=== PATIENT | male | born 1955 | race Caucasian/White ===

== ENCOUNTER 2016-11-30 18:27 | Emergency (ER) | payer OTHER ==
[2016-11-30 19:49] VITALS: BP 134/78
--- NOTE | 2016-11-30 20:16 | UC ---
Eye Complaint HPI - HPI Summary HPI Summary: The patient comes in today for: 1. FB sensation in the left eye: Onset: 4 hours ago. Palliative/provocative: Blinking Quality: FB sensation. Region: Left eye. Severity: 5/10 Time: Constant. Associated symptoms: Previous eye problems: None. Vision: normal. * - History of Current Complaint Chief Complaint: UCEye Stated Complaint: FB IN LEFT EYE Time Seen by Provider: 11/30/16 20:06 Hx Obtained From: Patient - Allergies/Home Medications Allergies/Adverse Reactions: Allergies Allergy/AdvReac Type Severity Reaction Status Date / Time No Known Allergies Allergy Verified 11/30/16 19:49 Home Medications: Home Medications Rivaroxaban TAB(*) [Xarelto 10 mg (*)] 10 mg PO DAILY 11/30/16 [History Confirmed 11/30/16] PMH/Surg Hx/FS Hx/Imm Hx Previously Healthy: No Endocrine History Of: Reports: Dyslipidemia Denies: Diabetes, Thyroid Disease, Hyperthyroidism, Hypothyroidism Cardiovascular History Of: Reports: Cardiac Disorders - A-FIB, Hypertension, Atrial Fibrillation Denies: Pacemaker/ICD, Myocardial Infarction, Congestive Heart Failure, Deep Vein Thrombosis, Bleeding Disorders Respiratory History Of: Reports: COPD - He used inhalers for "a while." Denies: Asthma, Bronchitis, Pneumonia, Pulmonary Embolism GI/ History Of: Denies: Gastroesophageal Reflux, Ulcer, Gastrointestinal Bleed, Gall Bladder Disease, Kidney Stones, Diverticulitis, Renal Disease, Urosepsis Neurological History Of: Denies: TIA, CVA, Dementia, Seizures, Migraine Psychological History Of: Denies: Anxiety, Depression, Bipolar Disorder, Schizophrenia, Post Traumatic Stress Disorder Cancer History Of: Denies: Lung Cancer, Colorectal Cancer, Breast Cancer, Prostate Cancer, Cervical Cancer Other History Of: Anticoagulant Therapy - Xarelto for a-fib. Negative For: HIV, Hepatitis B - Surgical History Surgical History: None - Family History Known Family History: Positive: Other - cva Negative: Cardiac Disease, Hypertension - Social History Occupation: Retired Alcohol Use: Rare Substance Use Type: None Smoking Status (MU): Former Smoker Amount Used/How Often: 1ppd >30yrs Have You Smoked in the Last Year: No When Did the Patient Quit Smoking/Using Tobacco: 5yrs ago Review of Systems Constitutional: Negative Skin: Negative Eyes: Eye Redness ENT: Negative Respiratory: Negative Cardiovascular: Negative Gastrointestinal: Negative Genitourinary: Negative Motor: Negative All Other Systems Reviewed And Are Negative: Yes Physical Exam Triage Information Reviewed: Yes Appearance: Well-Appearing, No Pain Distress, Well-Nourished Vital Signs: Initial Vital Signs Temp 98 F 11/30/16 19:40 Pulse 86 11/30/16 19:40 Resp 16 11/30/16 19:40 BP 134/78 11/30/16 19:40 Pulse Ox 97 11/30/16 19:40 Vital Signs Reviewed: Yes Eyes: Positive: Conjunctiva Clear - On the right, Conjunctiva Inflamed - on the left., Discharge - Only tearing., Other: - There is fluorescein uptake at the 12 o'clock position. It was only a few mm in diameter. There was no foreign body seen under the left eye lid. ENT: Positive: Hearing grossly normal, Other: - both ear canals full of cerumen , but no canal erythema or edema.. Negative: Pharyngeal erythema, Nasal congestion, Nasal drainage Dental: Negative: Gross Decay/Caries @, Dental Fracture @ Neck: Positive: Supple, Nontender, No Lymphadenopathy. Negative: Nuchal Rigidity Respiratory: Positive: Lungs clear, No respiratory distress, No accessory muscle use. Negative: Crackles, Wheezing Cardiovascular: Positive: RRR, No Murmur Abdomen Description: Positive: Nontender, No Organomegaly, Soft. Negative: Distended, Guarding Musculoskeletal: Positive: Strength Intact, ROM Intact Neurological: Positive: Alert, Muscle Tone Normal Psychological: Positive: Age Appropriate Behavior, Consolable Skin: Negative: rashes, breakdown Eye Complaint Course/Dx - Course Course Of Treatment: P - Differential Dx/Diagnosis Differential Diagnosis/HQI/PQRI: Corneal Abrasion, Foreign Body Provider Diagnoses: corneal abrasion Discharge - Discharge Plan Condition: Stable Disposition: HOME Patient Education Materials: Corneal Abrasion (ED) Referrals: Ibrahima Holcomb MD [Primary Care Provider] - 1 Week (Please see your primary care provider in about one to two weeks to see how well you are doing. If you get worse, please be seen sooner.)
[2016-11-30] MEDS ORDERED: BSS OPTH.SOL* BTL OPHTHALMIC ONE (20:17)
[2016-11-30] MEDS ORDERED: Fluorescein Sodium TOPICAL* 1 MG TEST OPHTHALMIC ONE (20:17)
[2016-11-30] MEDS ORDERED: Tetracaine 0.5% OPTH.SOL 4 ML* 1 DROP BTL LEFT EYE ONE (20:17)
[2016-11-30] MEDS ORDERED: Erythromycin OPTH OINT* APPLIC OINT RIGHT EYE ONE (21:01)
== END 2016-11-30 21:16 | disposition home or self-care (01) ==
LOC: UCCORT 18:27
DX: S05.02XA Injury of conjunctiva and corneal abrasion without foreign body, left eye, initial encounter (principal); X58.XXXA Exposure to other specified factors, initial encounter; Y93.9 Activity, unspecified; Y92.9 Unspecified place or not applicable; E78.5 Hyperlipidemia, unspecified; I10 Essential (primary) hypertension; I48.91 Unspecified atrial fibrillation; Z79.01 Long term (current) use of anticoagulants; J44.9 Chronic obstructive pulmonary disease, unspecified; Z87.891 Personal history of nicotine dependence
CPT/HCPCS: 99211; A9270-GY; G0463

== ENCOUNTER 2024-06-30 05:37 | Observation (INO) ==
[~2024-06-30 05:37] MED LIST: Metoclopramide 5 MG/ML VIAL (10 mg) IV PRN; NS 0.45% 1000 ml BAG 1,000 ML IV SCH; Naloxone 0.4 mg VIAL 0.4 mg/ml 1 ml VIAL IV PRN; Ondansetron 4 mg VIAL 2 MG/ML 2 ml VIAL IV PRN
[2024-06-30] MEDS ORDERED: Tranexamic Acid 1 GM/100ML BAG 2,000 MG/200 ML BAG IV ONE (06:17)
[2024-06-30] MEDS ORDERED: ceFAZolin 2 GM PREMIX 2 GM/50 ML BAG ONE (06:17)
[2024-06-30] MEDS: Lactated Ringers 1000 ml BAG 1,000 ML IV SCH ×2 (06:26→13:29)
[2024-06-30 06:28] LABS: Rapid COVID-19 Molecular Undetected (Undetected)
[2024-06-30] MEDS: Scopolamine 1 mg/72hr PATCH TRANSDERM ONE (06:28)
[2024-06-30] MEDS: Buffered Lidocaine 1% SYRIN 1 ml INTRADERM ONE (06:28)
[2024-06-30] MEDS ORDERED: ROPIVACAINE 5 MG/ML 30 ML BTL (0.5%) ONE (07:00)
[2024-06-30] MEDS ORDERED: Rocuronium 50 mg VIAL 10 mg/ml 5 ml VIAL (50 mg) ONE ×2 (07:07→07:53)
[2024-06-30] MEDS ORDERED: Propofol 10 MG/ML 20 ML BTL ONE ×2 (07:07→09:35)
[2024-06-30] MEDS ORDERED: Lidocaine 2% PF 5 ML VIAL ONE (07:07)
[2024-06-30] MEDS ORDERED: fentaNYL 100 mcg/2 ml 50 MCG/ML VIAL ONE ×3 (07:08→11:23)
[2024-06-30] MEDS ORDERED: Midazolam 2 mg/2 ml VIAL 1 mg/ml 2 ml VIAL (2 mg) ONE (07:08)
[2024-06-30] MEDS ORDERED: Ondansetron 4 mg VIAL 2 MG/ML 2 ml VIAL ONE (07:39)
[2024-06-30] MEDS ORDERED: Dexamethasone IV 4 MG/ML VIAL 1 ml VIAL ONE (07:39)
[2024-06-30] MEDS ORDERED: HYDROmorphone 0.5 MG/0.5 ML SYRINGE ONE ×3 (08:00→08:44)
[2024-06-30] MEDS ORDERED: Calcium Carb (TUMS) 500 mg CHEW TAB PO PRN (09:58)
[2024-06-30] MEDS ORDERED: Morphine 2 MG/ML SYRINGE IV PRN (09:58)
[2024-06-30] MEDS ORDERED: Ondansetron 4 mg VIAL 2 MG/ML 2 ml VIAL IV PRN (09:58)
[2024-06-30] MEDS ORDERED: Magnesium Hydroxide LIQ 30 ML UDC PO PRN (09:58)
[2024-06-30] MEDS ORDERED: Lactulose 30 ml UDC PO PRN (09:58)
[2024-06-30] MEDS ORDERED: Propofol 0 MG/0 ML BTL ONE (11:24)
[2024-06-30] MEDS ORDERED: hydrALAZINE 20 mg/ml 1 ML Vial IV ONE (11:29)
[2024-06-30] MEDS: fentaNYL 100 mcg/2 ml 50 MCG/ML VIAL IV PRN (11:31)
[2024-06-30] MEDS: Acetaminophen IV 1 GM/100ML 1,000 MG/100 ML BAG IV ONE (13:28)
[2024-06-30 14:55] VITALS: BP 123/87
[2024-06-30] MEDS: ceFAZolin 2 GM PREMIX 2 GM/50 ML BAG IV SCH (15:00)
[2024-06-30] MEDS: Ondansetron ODT 4 mg TAB 4 MG TAB PO PRN (16:51)
[2024-06-30] MEDS ORDERED: Magnesium Hydroxide LIQ 30 ML UDC PO SCH (21:00)
[2024-07-01] MEDS ORDERED: Vitamin THERAPEUTIC TAB PO SCH (09:00)
== END 2024-06-30 17:45 | disposition home or self-care (01) ==
LOC: SSU 05:37 → OR 05:37
PROVIDERS: ADMIT Orthopaedic Surgery Adult Reconstructive Orthopaedic Surgery; ATTEND Orthopaedic Surgery Adult Reconstructive Orthopaedic Surgery